=== PATIENT | male | born 1965 | race Caucasian/White ===

== ENCOUNTER 2020-07-02 15:23 | Emergency (ER) | payer MEDICARE, OTHER | END 2020-07-02 18:00 | disposition home or self-care (01) | LOC: ER1 15:23 | DX: S01.91XA Laceration without foreign body of unspecified part of head, initial encounter (principal); S10.93XA Contusion of unspecified part of neck, initial encounter; Z23 Encounter for immunization; Z88.6 Allergy status to analgesic agent; V49.50XA Passenger injured in collision with unspecified motor vehicles in traffic accident, initial encounter; Y92.410 Unspecified street and highway as the place of occurrence of the external cause | CPT/HCPCS: 70450; 71045; 72125; 90471; 90715; 99283 ==

== ENCOUNTER 2020-10-01 11:51 | Observation (INO) | payer MEDICARE, OTHER ==
[~2020-10-01] VITALS: Ht 175.3 cm; Wt 112.5 kg
[2020-10-01 12:31] LABS: HEMOGLOBIN 16.5 gm/dl (14.0-17.5); RED BLOOD COUNT 5.06 M/UL (4.20-5.50); WHITE BLOOD COUNT 7.7 K/UL (4.5-11.0)
[2020-10-01 12:53] LABS: BUN/CREATININE RATIO 13 (0-10)
[2020-10-01] MEDS ORDERED: ASPIRIN EC81 MG PO (14:49)
[2020-10-01] MEDS ORDERED: VALSARTAN80 MG PO (14:50)
[2020-10-01] MEDS ORDERED: FAMOTIDINE20 MG PO (14:50)
[2020-10-01] MEDS ORDERED: FLONASE ALLER15.8 ML (14:51)
[2020-10-01] MEDS ORDERED: VASCEPA1 GM PO (14:52)
[2020-10-01] MEDS ORDERED: LORATADINE10 MG PO (14:52)
[2020-10-01] MEDS ORDERED: VENTOLIN HFA 66.7 GM PO (14:54)
[2020-10-02 03:21] LABS: HEMOGLOBIN 16.3 gm/dl (14.0-17.5); RED BLOOD COUNT 5.07 M/UL (4.20-5.50); WHITE BLOOD COUNT 8.2 K/UL (4.5-11.0)
[2020-10-02 03:42] LABS: BUN/CREATININE RATIO 15 (0-10)
--- NOTE | 2020-10-02 14:54 | NUR ---
PATIENT ARRIVES ON FLOOR AT 1345 PER PROPOSAL LE[employer] STAFF. NADN. TR BAND TO RIGHT WRIST, CDI. 2X2/TEGADERM TO THE RIGHT GROIN. DRESSING CDI. PATIENT WITH NO COMPLAINTS OF PAIN OR DISCOMFORT WILL CONTINUE TO MONITOR. AGREE WITH MS ASSESSMENT FROM THIS AM.
--- NOTE | 2020-10-02 17:31 | NUR ---
AT 1645 FINAL 5ML OF AIR REMOVED FROM TR BAND ON RIGHT WRIST. NO BLEEDING, PAIN OR SWELLING NOTED. BANDAGE APPLIED. RIGHT GROIN SITE NO SWELLING OR BLEEDING NOTED, DRESSING CDI. WILL CONTINUE TO MONITOR.
[2020-10-03 07:56] LABS: HEMOGLOBIN 16.8 gm/dl (14.0-17.5); RED BLOOD COUNT 5.55 M/UL (4.20-5.50); WHITE BLOOD COUNT 12.7 K/UL (4.5-11.0)
[2020-10-03 08:24] LABS: BUN/CREATININE RATIO 18 (0-10)
[2020-10-03] MEDS ORDERED: NITROGLYCERIN0.4 MG SL (10:11)
[2020-10-03] MEDS ORDERED: LOPRESSOR 25 MG25 MG PO (10:11)
[2020-10-03] MEDS ORDERED: CRESTOR 10 MG T10 MG PO (10:11)
[2020-10-03] MEDS ORDERED: BRILINTA 90 MG90 MG PO (10:11)
== END 2020-10-03 13:15 | disposition home or self-care (01) ==
LOC: ER1 11:51 → M/S 13:28 → PROG CARE 13:28 → CDU 13:28 → M/S 13:28 → PROG CARE 10-02 12:57
PROVIDERS: Emergency Medicine; Physician Assistant; ADMIT Internal Medicine
DX: I25.110 Atherosclerotic heart disease of native coronary artery with unstable angina pectoris (principal); R09.02 Hypoxemia; J44.9 Chronic obstructive pulmonary disease, unspecified; F17.210 Nicotine dependence, cigarettes, uncomplicated; E66.9 Obesity, unspecified; E78.5 Hyperlipidemia, unspecified; I10 Essential (primary) hypertension; R94.39 Abnormal result of other cardiovascular function study; K21.9 Gastro-esophageal reflux disease without esophagitis; E11.9 Type 2 diabetes mellitus without complications; Z71.6 Tobacco abuse counseling; Z88.1 Allergy status to other antibiotic agents; Z20.822 Contact with and (suspected) exposure to COVID-19; Z98.61 Coronary angioplasty status; Z90.49 Acquired absence of other specified parts of digestive tract
CPT/HCPCS: 36415; 71045; 80048; 80053; 80061; 82550; 82553; 83735; 83874; 84100; 84484; 85025; 93005; 94664; 94760; 99152; 99153; 99285; C1725; C1769; C1874; C1887; C9600; G0378; J0583; J1644; J2250; J3010; J7040; Q9967; U0002

== ENCOUNTER → 2021-02-07 | Outpatient (CLI) | payer MEDICARE, OTHER ==
[~2021-02-07] MED LIST: ASPIRIN EC81 MG PO; BRILINTA 90 MG90 MG PO; CRESTOR 10 MG T10 MG PO; FAMOTIDINE20 MG PO; FLONASE ALLER15.8 ML; LOPRESSOR 25 MG25 MG PO; LORATADINE10 MG PO; NITROGLYCERIN0.4 MG SL; VALSARTAN80 MG PO; VASCEPA1 GM PO; VENTOLIN HFA 66.7 GM PO
== END ==
LOC: HEART CORB 08:13
DX: I25.10 Atherosclerotic heart disease of native coronary artery without angina pectoris (principal); R07.2 Precordial pain
CPT/HCPCS: 78452; A9502; J2785